=== PATIENT | male | born 2000 | race Caucasian/White ===

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

== ENCOUNTER 2024-05-04 15:00 | Emergency (ER) | payer BC, OTHER ==
[~2024-05-04] VITALS: Ht 188 cm; Wt 130.5 kg
[2024-05-04 16:41] LABS: HEMATOCRIT 51.5 % (42.0-52.0); HEMOGLOBIN 17.5 g/dl (13.5-17.5); MEAN CORPUSCULAR HEMOGLOBIN 29.7 pg (27.0-33.0); MEAN CORPUSCULAR VOLUME 87.4 fl (80.0-96.0); PLATELET COUNT, AUTOMATED 308 10^3/uL (150-450); RED BLOOD COUNT 5.89 10^6/uL (4.30-6.10); WHITE BLOOD COUNT 6.7 10^3/uL (4.0-10.0)
[2024-05-04 17:09] LABS: BLOOD UREA NITROGEN 12 MG/DL (9-23); CALCIUM LEVEL 10.4 MG/DL (8.5-10.1); CARBON DIOXIDE LEVEL 28 MMOL/L (20-31); CHLORIDE LEVEL 107 MMOL/L (98-107); CREATININE FOR GFR 0.82 MG/DL (0.70-1.30); GLOMERULAR FILTRATION RATE > 60.0 (>60); GLUCOSE, FASTING 86 MG/DL (60-100); POTASSIUM SERUM 4.2 MMOL/L (3.5-5.1); SODIUM LEVEL 143 MMOL/L (136-145)
[2024-05-04 17:23] LABS: INR 0.92; PROTHROMBIN TIME 12.6 SECONDS (12.5-14.5)
[2024-05-04] MEDS ORDERED: ISOVUE-370 76% 100ML VIAL As Ordered ONE (17:35)
[2024-05-04 18:48] VITALS: BP 144/84; TEMP 98.4; O2SAT 99
== END 2024-05-04 18:51 | disposition home or self-care (01) ==
LOC: M ED 15:00
DX: R04.2 Hemoptysis (principal); F17.290 Nicotine dependence, other tobacco product, uncomplicated
CPT/HCPCS: 70498; 71275; 80048; 85027; 85610; 99284; Q9967

== ENCOUNTER 2024-06-21 12:19 | Emergency (ER) | payer BC ==
[~2024-06-21] VITALS: Ht 188 cm; Wt 122.7 kg
[2024-06-21] MEDS ORDERED: ISOVUE-370 76% 100ML VIAL As Ordered ONE (15:36)
[2024-06-21] MEDS: KETOROLAC 30 MG/ML 1ML VIAL IV ONE (15:54)
[2024-06-21 16:35] VITALS: BP 141/77; TEMP 97.8; O2SAT 98
== END 2024-06-21 16:35 | disposition home or self-care (01) ==
LOC: M ED 12:19
DX: M25.562 Pain in left knee (principal); X50.0XXA Overexertion from strenuous movement or load, initial encounter; F10.10 Alcohol abuse, uncomplicated; F17.200 Nicotine dependence, unspecified, uncomplicated; Y92.009 Unspecified place in unspecified non-institutional (private) residence as the place of occurrence of the external cause; Y93.89 Activity, other specified; Y99.9 Unspecified external cause status; Z88.6 Allergy status to analgesic agent; Z88.5 Allergy status to narcotic agent
CPT/HCPCS: 73564; 73706; 96374; 99284; J1885; Q9967

== ENCOUNTER → 2024-06-25 | Outpatient (CLI) | payer BC | LOC: M PLAIMG 10:54 | PROVIDERS: ATTEND Physician Assistant | DX: M22.02 Recurrent dislocation of patella, left knee (principal); M17.12 Unilateral primary osteoarthritis, left knee ==

== ENCOUNTER → 2024-07-29 | Outpatient (REF) | payer BC ==
[2024-07-29 17:47] LABS: HEMOGLOBIN A1c 5.3 % (4.0-6.0)
[2024-07-29 18:12] LABS: HIV 1&2 SCREEN NEGATIVE (NEGATIVE)
[2024-07-29 18:20] LABS: HEPATITIS C VIRUS ABY INDEX 0.09 INDEX (<0.8)
[2024-07-29 18:37] LABS: ALBUMIN 4.5 G/DL (3.2-5.2); ALKALINE PHOSPHATASE 75 U/L (40-129); ALT/SGPT 47 U/L (7.0-40); AST/SGOT 26 U/L (<34); BLOOD UREA NITROGEN 14 MG/DL (9-23); CALCIUM LEVEL 10.3 MG/DL (8.5-10.1); CARBON DIOXIDE LEVEL 30 MMOL/L (20-31); CHLORIDE LEVEL 103 MMOL/L (98-107); CHOLESTEROL LEVEL 203 MG/DL (<200); CHOLESTEROL RISK RATIO 4.07 (<5); CREATININE FOR GFR 0.86 MG/DL (0.70-1.30); FREE THYROXINE INDEX 2.9 % (1.4-3.8); GLOMERULAR FILTRATION RATE > 60.0 (>60); GLUCOSE, FASTING 93 MG/DL (60-100); HDL CHOLESTEROL 49.8 MG/DL (>40); LDL CHOLESTEROL 118.2 MG/DL (<100); NON-HDL-C 153.2 MG/DL; POTASSIUM SERUM 4.7 MMOL/L (3.5-5.1); SODIUM LEVEL 142 MMOL/L (136-145); T UPTAKE 32.2 % (22.5-37.0); THYROID STIMULATING HORMONE 2.195 uIU/ML (0.55-4.78); TOTAL 25(OH) VITAMIN D 19.1 NG/ML (20.0-100.0); TOTAL PROTEIN 7.9 G/DL (5.7-8.2); TRIGLYCERIDES LEVEL 175 MG/DL (<150)
[2024-07-29 19:20] LABS: Trichomonas vaginalis (AMP) NOT DETECTED (NEGATIVE)
[2024-07-29 19:43] LABS: GC DNA AMPLIFICATION NEGATIVE (NEGATIVE)
== END ==
LOC: M LAB REF 16:22
PROVIDERS: ATTEND Physician Assistant
DX: Z11.9 Encounter for screening for infectious and parasitic diseases, unspecified (principal); E66.9 Obesity, unspecified; E55.9 Vitamin D deficiency, unspecified; E04.9 Nontoxic goiter, unspecified

== ENCOUNTER → 2024-08-20 | Outpatient (CLI) | payer BC ==
[~2024-08-20] MED LIST: PROHANCE 279.3MG/ML 15ML VIAL ONE; PROHANCE 279.3MG/ML 5ML VIAL ONE
== END ==
LOC: M PLAIMG 13:53
PROVIDERS: ATTEND Physician Assistant
DX: R19.09 Other intra-abdominal and pelvic swelling, mass and lump (principal)
CPT/HCPCS: 72197; 74183; A9576

== ENCOUNTER 2024-10-09 21:05 | Emergency (ER) | payer BC ==
[~2024-10-09] VITALS: Ht 188 cm; Wt 127.3 kg
[2024-10-09 21:07] VITALS: BP 147/97; TEMP 98.7; O2SAT 99
[2024-10-09] MEDS ORDERED: ASPI-1 (21:10)
[2024-10-09] MEDS ORDERED: HYDR-3716 (21:10)
== END 2024-10-09 21:59 | disposition left against medical advice (07) ==
LOC: M ED 21:05
DX: Z53.21 Procedure and treatment not carried out due to patient leaving prior to being seen by health care provider (principal)

== ENCOUNTER → 2024-10-20 | Outpatient (CLI) | payer BC ==
[~2024-10-20] MED LIST changes: +ASPI-1; +HYDR-3716; -PROHANCE 279.3MG/ML 15ML VIAL ONE; -PROHANCE 279.3MG/ML 5ML VIAL ONE
== END ==
LOC: M RAD 17:03
PROVIDERS: ATTEND Orthopaedic Surgery
DX: M25.562 Pain in left knee (principal)